=== PATIENT | female | born 1985 | race Hispanic/Latino ===

== ENCOUNTER 2018-04-05 11:08 | Emergency (ER) | payer BC ==
[2018-04-05 12:14] LABS: Bilirubin Negative (Negative); Blood, Urine Negative (Negative); Clarity CLOUDY (Clear); Glucose, Urine (Dipstick) Negative (Negative); Leukocyte Small (Negative); Nitrite Negative (Negative); Protein, Urine (Dipstick) Trace mg/dL (Neg-Trace); pH, Urine 7.5 (5.0-9.0)
[2018-04-05 12:15] LABS: Bacteria/HPF None Seen HPF (None Seen); Pathc Cast-AUWi Flag 1.59 (0-2.49)
[2018-04-05 12:21] LABS: #Basophils 0.1 thou/uL (0.0-0.2); #Eosinphils 0.1 thou/uL (0.0-0.7); #Lymphocytes 1.6 thou/uL (1.20-3.40); #Monocytes 0.5 thou/uL (0.11-0.59); #Neutrophils 4.7 thou/uL (1.40-6.50); %Basophils 1.2 % (0.0-1.0); %Eosinophils 1.1 % (0.0-10.0); %Lymphocytes 23.2 % (21.0-51.0); %Monocytes 6.7 % (0.0-10.0); %Neutrophils 67.7 % (42.0-75.0); Hemoglobin 12.2 g/dL (12.0-16.0); Mean Corpuscular HGB CONC 33.5 g/dL (32.0-36.0); Mean Corpuscular Hemoglobin 30.6 pg (27.0-31.0); Mean Corpuscular Volume 91.3 fL (78.0-98.0); Mean Platelet Volume 6.5 fL (7.4-10.4); Platelet Count 327 thou/uL (130-400); RBC Distribution Width 11.8 % (11.5-14.5); Red Blood Cell (RBC) Count 3.99 mill/uL (4.20-5.40); White Blood Cell (WBC) Count 6.9 thou/uL (4.8-10.8)
[2018-04-05 12:26] LABS: Crystals/HPF 1+ AMORPH PHOS HPF (Negative); Hyaline Casts/LPF 0-3 HYALINE CAST LPF (0-3 Hyaline); Renal Epithelial None Seen HPF (0-3); Transitional Epithelial NONE SEEN HPF (0-3)
[2018-04-05 12:44] LABS: ALT (SGPT) 11 U/L (8-55); AST (SGOT) 13 U/L (5-34); Albumin 3.6 g/dL (3.5-5.0); Alkaline Phosphatase 39 U/L (40-150); Anion Gap 10 mmol/L (10-20); BUN (Urea Nitrogen) 4 mg/dL (7.0-18.7); Bilirubin, Total 0.3 mg/dL (0.2-1.2); Calc. Creatinine Clearance 0 mL/min (70-130); Calcium 9.2 mg/dL (7.8-10.44); Carbon Dioxide 24 mmol/L (22-29); Chloride 106 mmol/L (98-107); Estimated GFR-MDRD Greater than 90; Globulin 3.3 g/dL (2.4-3.5); Glucose 107 mg/dL (70-105); Lipase 33 U/L (8-78); Potassium 3.9 mmol/L (3.5-5.1); Protein, Total 6.9 g/dL (6.0-8.3); Sodium 136 mmol/L (136-145)
== END 2018-04-05 14:08 | disposition home or self-care (01) ==
LOC: ERS 11:08
DX: O99.612 Diseases of the digestive system complicating pregnancy, second trimester (principal); K59.00 Constipation, unspecified; O23.42 Unspecified infection of urinary tract in pregnancy, second trimester; Z3A.14 14 weeks gestation of pregnancy
CPT/HCPCS: 36415; 80053; 81003; 81015; 83690; 85025; 99284

== ENCOUNTER 2018-09-27 06:00 | Inpatient (IN) | payer BC ==
--- NOTE | 2018-09-26 12:47 | PDOC.LDHP ---
Labor and Delivery H&P Chief complaint: scheduled induction HPI: Pt is a 33yo Current gestational age (weeks): 39 Due date: 09/30/18 Dating criteria: last menstrual period, first trimester ultrasound Grav: 4 Para: 3 OB History Details: x 3 Current complications: none Abnormal US findings: No Current medications: pre-chris vitamins Previous surgical history: none Allergies/Adverse Reactions: Allergies Allergy/AdvReac Type Severity Reaction Status Date / Time No Known Allergies Allergy Verified 09/27/18 08:10 Social history: none - Physical Exam Vital signs reviewed and normal: yes General: resting Lungs: nonlabored breathing Abdomen: gravid Extremeties: no edema FHT: category 1 - Vaginal Exam cm dilated: 4 Effacement: 50% Station: -2 - OB Labs Blood type: B RH: positive Antibody Screen: negative HIV: negative RPR: negative HEPSAg: negative 1 hour GCT: negative GBS: negative Rubella: immune - Assessment L&D Assessment: elective induction at term - Plan Plan: admit to L&D, labor augmentation if indicated, informed consent obtained, anesthesia consult for pain management -: A/P: 39 weeks here for requested elective IOL w favorable cervix. AROM on admit exam with clear fluid. Plan for pitocin and anticipate .
[2018-09-27] MEDS: Lactated Ringer's 1,000 ML IV SCH ×2 (07:47→09:45)
[2018-09-27] MEDS ORDERED: Ondansetron PF 4 MG/2 ML Vial IVP PRN ×3 (07:54→15:19)
[2018-09-27] MEDS ORDERED: Promethazine HCl 25 MG/ML VIAL IM PRN ×2 (07:54→09:54)
[2018-09-27] MEDS ORDERED: HYDROcodone/Acetaminophen 5/325 mg Tablet PO PRN ×3 (07:54→15:19)
[2018-09-27] MEDS ORDERED: Butorphanol Tartrate 1 MG/ML VIAL SLOW IVP PRN (07:54)
[2018-09-27] MEDS ORDERED: NS w/ Oxytocin 10 units 500 ML IV SCH ×2 (07:54)
[2018-09-27] MEDS ORDERED: NS / Oxytocin 40 units/1000ml 1,000 ML IV PRN (07:54)
[2018-09-27] MEDS ORDERED: Ibuprofen 800 MG TAB PO PRN (07:54)
[2018-09-27] MEDS ORDERED: Lidocaine 1% (PF) 30 ML VIAL SC PRN (07:54)
[2018-09-27] MEDS ORDERED: NS w/ Oxytocin 10 units 500 ML ONE (08:02)
[2018-09-27 08:11] LABS: Hemoglobin 10.3 g/dL (12.0-16.0); Mean Corpuscular HGB CONC 32.2 g/dL (32.0-36.0); Mean Corpuscular Hemoglobin 27.8 pg (27.0-31.0); Mean Corpuscular Volume 86.4 fL (78.0-98.0); Mean Platelet Volume 7.6 fL (7.4-10.4); Platelet Count 274 thou/uL (130-400); Red Blood Cell (RBC) Count 3.71 mill/uL (4.20-5.40); White Blood Cell (WBC) Count 7.9 thou/uL (4.8-10.8)
[2018-09-27 08:17] VITALS: BMI 25.1
[2018-09-27 08:51] LABS: HBSAg Index 0.29 S/CO (0-0.99); Hep B Surf Ag Non-Reactive S/CO (NonReactive); Syphilis Antibody Nonreactive (Nonreactive); Syphilis Antibody Index 0.04 S/CO (<1.00 Non-Reactive)
[2018-09-27] MEDS ORDERED: Lidocaine 1.5%/Epinephrine 1:200,000 5 ML AMPUL IJ ONE (09:06)
[2018-09-27] MEDS ORDERED: Fentanyl 4 mcg/Bup 0.1% Cadd 100 ML ONE (09:07)
[2018-09-27] MEDS ORDERED: diphenhydrAMINE 50 MG/ML VIAL IVP PRN (09:54)
[2018-09-27] MEDS ORDERED: Naloxone HCl 0.4 mg/ml Vial IVP PRN ×2 (09:54)
[2018-09-27] MEDS ORDERED: Eucerin (Mineral Oil/Petrolatum,White) 30 gm Jar TOP PRN (09:54)
[2018-09-27] MEDS ORDERED: Acetaminophen 325 MG TAB PO PRN (09:54)
[2018-09-27] MEDS ORDERED: Lactated Ringer's 500 ML IV PRN (09:54)
[2018-09-27] MEDS ORDERED: ePHEDrine/0.9% NaCl/PF SYRINGE 50 mg/10 ml SLOW IVP PRN (09:54)
[2018-09-27] MEDS ORDERED: Fentanyl 4 mcg/Bupivacaine 0.1% Cassette 100 ML EPIDURAL SCH (10:00)
[2018-09-27] MEDS ORDERED: Communication Order-Pharmacy FS SCH (10:00)
--- NOTE | 2018-09-27 13:26 | PDOC.OPDEL ---
OB Operative/Delivery Note Delivery Dr/Surgeon: MÓNICA Pre-Delivery Diagnosis: elective induction Procedure/Post Delivery Dx: spontaneous vaginal delivery Weeks gestation: 39 Anesthesia: epidural - Findings A Sex: male - 1 min: 9 - 5 min: 9 - Additional Findings/Plan Placenta delivered: spontaneous Repaired Obstetrical Laceration: 1st degree Estimated blood loss: 300ML Compilations/Other Findings: NONE Post delivery plan: routine recovery
[2018-09-27] MEDS ORDERED: diphenhydrAMINE 25 MG CAP PO PRN (15:19)
[2018-09-27] MEDS ORDERED: NS / Oxytocin 40 units/1000ml 1,000 ML IV SCH (15:19)
[2018-09-27] MEDS ORDERED: Preparation H Ointment 28 GM TUBE PR PRN (15:19)
[2018-09-27] MEDS ORDERED: Benzocaine-Menthol 82.5 ML CAN TOP PRN (15:19)
[2018-09-27] MEDS ORDERED: Lanolin Ointment 7 GM TUBE TOP PRN (15:19)
[2018-09-27] MEDS ORDERED: Milk Of Magnesia 30 ML UDCUP PO PRN (15:19)
[2018-09-27] MEDS ORDERED: Bisacodyl 10 MG SUPP PR PRN (15:19)
[2018-09-27] MEDS ORDERED: Adacel (T-DAP) 0.5 ML SYRINGE IM ONE (15:19)
[2018-09-27] MEDS: Ibuprofen 800 MG TAB PO SCH ×2 (16:19→17:22)
[2018-09-27] MEDS: Ferrous Sulfate 325 MG TAB PO SCH (17:25)
[2018-09-27] MEDS: Docusate Calcium (SURFAK) 240 MG CAP PO SCH (21:23)
[2018-09-28] MEDS: Ibuprofen 800 MG TAB PO SCH ×3 (00:12→16:36)
[2018-09-28 05:31] LABS: Hemoglobin 8.6 g/dL (12.0-16.0); Mean Corpuscular HGB CONC 31.7 g/dL (32.0-36.0); Mean Corpuscular Hemoglobin 27.4 pg (27.0-31.0); Mean Corpuscular Volume 86.2 fL (78.0-98.0); Mean Platelet Volume 7.1 fL (7.4-10.4); Platelet Count 208 thou/uL (130-400); RBC Distribution Width 12.9 % (11.5-14.5); Red Blood Cell (RBC) Count 3.12 mill/uL (4.20-5.40)
[2018-09-28] MEDS: HYDROcodone/Acetaminophen 5/325 mg Tablet PO PRN ×2 (06:43→12:57)
--- NOTE | 2018-09-28 08:04 | PDOC.PP ---
Post Progress Note Post Day #: 1 Subjective: reports increased discomfort in hips and legs this AM, normal/light lochia, no fever/chills, no SOB, baby feeding well PO intake tolerated: yes Flatus: yes Ambulation: yes Vital Signs (12 hours) Temp Pulse Resp BP Pulse Ox 09/28/18 04:30 98.6 F 70 18 107/59 L 09/28/18 00:10 98.5 F 74 18 100/72 09/27/18 21:20 99 Weight Weight 142 lb - Physical Examination General: NAD Respiratory: non-labored breathing Extremities: negative homans (B) Skin: no rash Neurological: no gross focal deficits Psychiatric: A&Ox3, normal affect Result Diagrams: 09/28/18 05:17 Additional Labs: Post Labs Blood Type B POSITIVE 09/27/18 08:39 Hep Bs Antigen Non-Reactive S/CO (NonReactive) 09/27/18 07:57 (1) Myalgia Code(s): M79.10 - MYALGIA, UNSPECIFIED SITE Status: Acute (2) Vaginal delivery Code(s): O80 - ENCOUNTER FOR FULL-TERM UNCOMPLICATED DELIVERY Status: Acute - Assessment/Plan PPD1 doing well w exception of bothersome bilateral leg discomfort, no swelling/ edema/cords noted, normal ROM, pain improving w Tylenol w codeine and heating pad. Encouarged pt to use NSAIDs for musculoskeletal discomfort, to sit in chair, out of bed this AM. BMP ordered to eval electrolytes. Possible DC this afternoon if myalgias resolve.
[2018-09-28] MEDS ORDERED: Prenatal Vitamin 1 TAB PO SCH (09:00)
[2018-09-28 09:01] LABS: Anion Gap 7 mmol/L (10-20); BUN (Urea Nitrogen) 4 mg/dL (7.0-18.7); Calc. Creatinine Clearance 158 mL/min (70-130); Calcium 8.4 mg/dL (7.8-10.44); Carbon Dioxide 26 mmol/L (22-29); Chloride 107 mmol/L (98-107); Estimated GFR-MDRD Greater than 90; Glucose 67 mg/dL (70-105); Potassium 4.2 mmol/L (3.5-5.1); Sodium 136 mmol/L (136-145)
[2018-09-28] MEDS: Ferrous Sulfate 325 MG TAB PO SCH ×2 (09:24→16:35)
[2018-09-28] MEDS: Docusate Calcium (SURFAK) 240 MG CAP PO SCH (09:24)
[2018-09-28 12:57] VITALS: BP 103/57; TEMP 98.5
== END 2018-09-28 17:25 | disposition home or self-care (01) | DRG 807 ==
LOC: L&D 07:48 → 3SW 15:50
PROVIDERS: ADMIT Obstetrics & Gynecology; ATTEND Obstetrics & Gynecology
PROC: 10E0XZZ Delivery of Products of Conception, External Approach (ICD-10-PCS; principal; 2018-09-27)
PROC: 0HQ9XZZ Repair Perineum Skin, External Approach (ICD-10-PCS; 2018-09-27)
PROC: 10907ZC Drainage of Amniotic Fluid, Therapeutic from Products of Conception, Via Natural or Artificial Opening (ICD-10-PCS; 2018-09-27)
PROC: 3E033VJ Introduction of Other Hormone into Peripheral Vein, Percutaneous Approach (ICD-10-PCS; 2018-09-27)
DX: O70.0 First degree perineal laceration during delivery (principal); Z37.0 Single live birth; Z3A.39 39 weeks gestation of pregnancy; O99.89 Other specified diseases and conditions complicating pregnancy, childbirth and the puerperium; M79.10 Myalgia, unspecified site
CPT/HCPCS: 36415; 80048; 85027; 86780; 86850; 86900; 86901; 87340; 90715; J2001; J2590; J3490

== ENCOUNTER 2018-11-22 01:55 | Emergency (ER) | payer BC ==
[2018-11-22] MEDS ORDERED: Ondansetron ODT 4 MG TAB ONE (02:00)
[2018-11-22 02:18] LABS: #Basophils 0.1 thou/uL (0.0-0.2); #Eosinphils 0.3 thou/uL (0.0-0.7); #Lymphocytes 3.7 thou/uL (1.20-3.40); #Monocytes 0.7 thou/uL (0.11-0.59); #Neutrophils 3.9 thou/uL (1.40-6.50); %Basophils 0.9 % (0.0-1.0); %Eosinophils 3.7 % (0.0-10.0); %Lymphocytes 42.2 % (21.0-51.0); %Monocytes 8.3 % (0.0-10.0); Hemoglobin 12.6 g/dL (12.0-16.0); Mean Corpuscular HGB CONC 33.4 g/dL (32.0-36.0); Mean Corpuscular Hemoglobin 29.2 pg (27.0-31.0); Mean Corpuscular Volume 87.4 fL (78.0-98.0); Mean Platelet Volume 6.5 fL (7.4-10.4); Platelet Count 349 thou/uL (130-400); RBC Distribution Width 15.8 % (11.5-14.5); Red Blood Cell (RBC) Count 4.31 mill/uL (4.20-5.40); White Blood Cell (WBC) Count 8.8 thou/uL (4.8-10.8)
[2018-11-22 02:41] LABS: ALT (SGPT) 49 U/L (8-55); AST (SGOT) 34 U/L (5-34); Albumin 4.4 g/dL (3.5-5.0); Alkaline Phosphatase 146 U/L (40-150); Anion Gap 14 mmol/L (10-20); BUN (Urea Nitrogen) 17 mg/dL (7.0-18.7); Bilirubin, Total 0.2 mg/dL (0.2-1.2); Calc. Creatinine Clearance 0 mL/min (70-130); Calcium 9.9 mg/dL (7.8-10.44); Carbon Dioxide 21 mmol/L (22-29); Chloride 110 mmol/L (98-107); Estimated GFR-MDRD Greater than 90; Globulin 2.9 g/dL (2.4-3.5); Glucose 96 mg/dL (70-105); Lipase 75 U/L (8-78); Potassium 4.6 mmol/L (3.5-5.1); Protein, Total 7.3 g/dL (6.0-8.3); Sodium 140 mmol/L (136-145)
[2018-11-22] MEDS ORDERED: Mag-Al 1200 mg/1200 mg/30 ML UDCUP ONE (04:25)
[2018-11-22] MEDS ORDERED: Lidocaine Viscous Sol 2% 15 ml UD Cup ONE (04:25)
[2018-11-22 04:41] LABS: Bilirubin Negative (Negative); Blood, Urine Negative (Negative); Clarity CLEAR (Clear); Glucose, Urine (Dipstick) Negative (Negative); Leukocyte Negative (Negative); Nitrite Negative (Negative); Protein, Urine (Dipstick) Negative (Neg-Trace); Specific Gravity, Urine 1.019 (1.002-1.036); Urobilinogen 0.2 mg/dL (0.2-1.0); pH, Urine 5.5 (5.0-9.0)
[2018-11-22 04:44] LABS: Pregnancy Test - Urine (BHCG) Negative (Negative); Pregu Control Background? CLEAR/WHITE (CLR/WHITE); Pregu Control Bar Appear? YES (CONTROL BAR); Specific Gravity 1.019 (1.002-1.036)
== END 2018-11-22 05:13 | disposition home or self-care (01) ==
LOC: ERS 01:55
DX: R10.13 Epigastric pain (principal); R11.0 Nausea
CPT/HCPCS: 36415; 80053; 81003; 81025; 83690; 85025; 99284; Q0162

== ENCOUNTER 2019-07-18 09:23 | Outpatient (CLI) | payer BC ==
--- NOTE | 2019-07-18 13:59 | RAD ---
EXAM: XR Cerv Sp Ap Lat STANDARD PROVIDED CLINICAL HISTORY: Cervicalgia COMPARISON: None FINDINGS: C1 to the cervicothoracic junction is seen on the lateral view. There is straightening of the normal cervical lordotic curvature. The vertebral body heights and intervertebral disc spaces are within normal limits. Interspinous distances are within normal limits. No fracture or subluxation is seen in volving the cervical spine. Prevertebral soft tissues have a normal appearance. IMPRESSION: Straightening of the normal cervical lordotic curvature, but there is no fracture or subluxation invo lving the cervical spine.
== END 2019-07-18 09:24 | disposition home or self-care (01) ==
LOC: BICRAD 09:23
PROVIDERS: ATTEND Family Medicine
DX: M54.2 Cervicalgia (principal); M43.8X2 Other specified deforming dorsopathies, cervical region
CPT/HCPCS: 72040